=== PATIENT | male | born 1995 | race Asian ===

== ENCOUNTER 2021-09-25 17:28 | Emergency (ER) | payer OTHER ==
[~2021-09-25] VITALS: Ht 167.6 cm; Wt 73.6 kg
[2021-09-25 17:45] VITALS: BP 136/78
[2021-09-25] MEDS ORDERED: IBUPROFEN 600 MG TABLET PO ONE (21:00)
[2021-09-25] MEDS ORDERED: LIDOCAINE 5% TRANSDERMAL PATCH TD ONE (21:00)
[2021-09-25] MEDS ORDERED: BACL10TA PO (21:23)
[2021-09-25] MEDS ORDERED: IBUP-2070 PO (21:24)
== END 2021-09-25 21:39 | disposition home or self-care (01) ==
LOC: EMS 17:28
DX: M54.2 Cervicalgia (principal); V43.52XA Car driver injured in collision with other type car in traffic accident, initial encounter; Y93.89 Activity, other specified; Y92.410 Unspecified street and highway as the place of occurrence of the external cause; Y99.8 Other external cause status
CPT/HCPCS: 72040; 99283